=== PATIENT | female | born 1945 | race Caucasian/White ===

== ENCOUNTER → 2018-04-18 | Outpatient (CLI) | payer MEDICARE, OTHER ==
[~2018-04-18] MED LIST: BENAML20/5; BIOTIN5000 MCG; CITA20 PO; CLON.1 PO; Citalopram HBr40 MG PO; FISH1000; GABA300 PO; LEVSOD75 PO; MILN100T; PANT40; Sudafed 12 Hou120 MG; TRAACE; VITAMIN D5000 UNI1; Vistaril25 MG PO; ZOLP5
== END ==
LOC: LAB SHORT 07:30 → LAB 07:30
DX: R19.7 Diarrhea, unspecified (principal); R10.9 Unspecified abdominal pain
CPT/HCPCS: 87493

== ENCOUNTER → 2018-04-20 | Outpatient (CLI) | payer MEDICARE, OTHER | END | disposition home or self-care (01) | LOC: LAB 10:01 → LAB SHORT 10:01 | DX: R19.7 Diarrhea, unspecified (principal); R10.9 Unspecified abdominal pain | CPT/HCPCS: 87329 ==

== ENCOUNTER 2021-05-18 08:39 | Day surgery (SDC) | payer OTHER ==
[~2021-05-18] VITALS: Ht 152.4 cm; Wt 62.1 kg
[~2021-05-18 08:39] MED LIST changes: +BIJUVA 1 MG-101 EAC1 PO; +BIOTIN1 MG PO; +BUTALB-CAFF-AC1 EACH PO; +DULO60 PO; +FENTANYL1 EA10 TOP; +GABA100 PO; +LISI20 PO; +LOSA25 PO; +PANT40 PO; +SAVELLA50 MG PO; +Stromectol3 MG PO; +TEMA15 PO; +ULTRACET PO; +[UNRECOGNIZED DRUG - MIXTURE] PO
== END 2021-05-18 10:53 | disposition home or self-care (01) ==
LOC: ORSCSDS 08:39
PROVIDERS: Internal Medicine Gastroenterology
PROC: 0DBK8ZX Excision of Ascending Colon, Via Natural or Artificial Opening Endoscopic, Diagnostic (ICD-10-PCS; principal; 2021-05-18 10:00)
DX: Z12.11 Encounter for screening for malignant neoplasm of colon (principal); D12.2 Benign neoplasm of ascending colon; K21.9 Gastro-esophageal reflux disease without esophagitis; K57.30 Diverticulosis of large intestine without perforation or abscess without bleeding; Z79.899 Other long term (current) drug therapy
CPT/HCPCS: 88305; J2704; J7120

== ENCOUNTER 2024-07-09 08:43 | Day surgery (SDC) | payer OTHER ==
[2024-07-09] VITALS (8 sets, daily range): BP systolic 124–163; BP diastolic 59–82
[~2024-07-09] VITALS: Ht 152.4 cm; Wt 66.3 kg
[~2024-07-09 08:43] MED LIST changes: +AMIT25 PO; +LOSA50; +LOSA50 PO; +TRAM50 PO
[2024-07-09] MEDS ORDERED: Lactated Ringer's 1,000 ML IV SCH (08:55)
[2024-07-09] MEDS ORDERED: CeFAZolin Sodium 2,000 MG in NS 100 ML IV SCH (08:55)
[2024-07-09] MEDS ORDERED: Lidocaine HCl 1% 30 ML SDV ONE (09:37)
[2024-07-09] MEDS ORDERED: Bupivacaine 0.5% HCl 5 MG/ML 30MLVIAL ONE (09:37)
[2024-07-09] MEDS ORDERED: Triamcinolone Inj Susp 40 MG / ML 1ML Vial INTERA ONE (09:40)
--- NOTE | 2024-07-09 09:40 | NUR ---
History, Chart, Medications and Allergies reviewed before start of procedure. Lungs clear T/O to Auscultation. Pre-Op teaching done. Pt verbalizes understanding. Patient States Post-Procedure ride home has been arranged.
[2024-07-09] MEDS ORDERED: propofoL 20 ML IV ONE (10:15)
[2024-07-09] MEDS ORDERED: FentaNYL Citrate 50 MCG/ML 2 ML Injection ONE (10:15)
[2024-07-09] MEDS ORDERED: Triamcinolone Inj Susp 40 MG / ML 1ML Vial IM ONE (10:50)
[2024-07-09] MEDS ORDERED: Dexamethasone Sod Phos 10 MG/ML 1ML VIAL ONE (10:55)
[2024-07-09] MEDS ORDERED: Ondansetron HCl 2 MG / ML 2ML Vial ONE (10:55)
--- NOTE | 2024-07-09 11:13 | NUR ---
07/09/24 1113 Sue Chang KENALOG 40MG INJCTED INTO BILATERAL SECOND METATARSAL SPACE BY .
[2024-07-09] MEDS ORDERED: HYDROcodone 5-APAP 325 TAB PO PRN (11:15)
--- NOTE | 2024-07-09 11:46 | NUR ---
Discharge instructions reviewed with patient. Patient verbalizes understanding. Copy given to patient to take home. Pt states having pain medication already at home. Adan wrap c/d/i. Patient States Post-Procedure ride home has been arranged. Discharged via wheelchair to private car for ride home.
== END 2024-07-09 11:55 | disposition home or self-care (01) ==
LOC: ORSCSDS 08:43 → ORSCMMR 08:44 → ORSCSDS 11:55
PROVIDERS: Podiatrist Foot & Ankle Surgery
PROC: 3E0T3BZ Introduction of Anesthetic Agent into Peripheral Nerves and Plexi, Percutaneous Approach (ICD-10-PCS; principal; 2024-07-09 10:30)
PROC: 01BH0ZZ Excision of Peroneal Nerve, Open Approach (ICD-10-PCS; principal; 2024-07-09 10:30)
PROC: 3E0T33Z Introduction of Anti-inflammatory into Peripheral Nerves and Plexi, Percutaneous Approach (ICD-10-PCS; principal; 2024-07-09 10:30)
DX: T87 Complications peculiar to reattachment and amputation (principal); I10 Essential (primary) hypertension; K21.9 Gastro-esophageal reflux disease without esophagitis; E03.9 Hypothyroidism, unspecified; Z79.899 Other long term (current) drug therapy
CPT/HCPCS: 88305; J0690; J1100; J2405; J2704; J3010; J3301; J7120